=== PATIENT | female | born 1955 | race Caucasian/White ===

== ENCOUNTER 2019-11-06 16:32 | Emergency (ER) | payer OTHER ==
[2019-11-06] MEDS ORDERED: ACETAMINOPHEN 325 MG TABLET (FP) PO ONE (16:35)
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
[2019-11-06 16:45] VITALS: BP 172/79; PULSE 75; TEMP 98.5; BMI 21.2
[2019-11-06] MEDS ORDERED: ACETAMINOPHEN 325 MG TABLET (FP) ONE (17:02)
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
== END 2019-11-06 17:40 | disposition home or self-care (01) ==
LOC: FER 16:32
DX: S63.502A Unspecified sprain of left wrist, initial encounter (principal); V18.2XXA Unspecified pedal cyclist injured in noncollision transport accident in nontraffic accident, initial encounter
CPT/HCPCS: 73110-TC-LT-FY; 99283-25